=== PATIENT | male | born 1985 | race Caucasian/White ===

== ENCOUNTER 2016-11-17 00:02 | Emergency (ER) | payer BC, MEDICARE ==
--- NOTE | 2016-11-17 00:29 | Emergency Department Record ---
History of Present Illness - General Chief Complaint: Abdominal Pain Stated Complaint: RT SIDE PAIN Time Seen by Provider: 11/17/16 00:15 Source: Patient Mode of Arrival: Ambulatory Limitations: No limitations - History of Present Illness Initial Comments: The patient is here due to a 6 hour hx of R flank pain. The pain is sharp and stabbing. He denies any nausea, vomiting, diarrhea, fever or dysuria. The patient was here in the ER 4 days ago for the same issue and was found to have a very slightly elevated Lipase, normal urine and a CT with a normal pancreas and no hydroureter or stone blockage. There was a very small stone in the kidney. He also has a hx of chronic AP and has had his GB removed in the past. The patient denies any black or bloody stools. He did have an EGD in May that demonstrated Gastritis. MD Complaint: Abdominal pain Onset/Timin -: Hour(s) Location: R Flank, RLQ Severity: Moderate Quality: Sharp Consistency: Constant Improves With: Rest Worsens With: Movement Context: Other Associated Symptoms: Denies other symptoms - Related Data Home Medications Medication Instructions Recorded Confirmed Last Taken Olanzapine 15 mg PO QHS 10/20/14 11/17/16 02/12/16 Omeprazole [Omeprazole] 40 mg PO DAILY 01/02/15 11/17/16 02/13/16 Doxepin HCl [Sinequan] 50 mg PO BID 08/10/15 11/17/16 02/12/16 Topiramate [Topiramate ER] 200 mg PO BID 08/10/15 11/17/16 02/12/16 Previous Rx's Medication Instructions Recorded Sumatriptan Succinate [Imitrex] 100 mg PO ASDIR PRN #4 05/23/15 Dicyclomine HCl [Bentyl] 10 mg PO Q8H #8 cap 11/13/16 Ondansetron [Zofran Odt] 4 mg PO Q8H #12 tab.rapdis 11/13/16 Sucralfate [Carafate] 1 gm PO QID #28 tablet 11/17/16 Allergies Allergy/AdvReac Type Severity Reaction Status Date / Time Sulfa (Sulfonamide Allergy HIVES Verified 08/10/15 17:21 Antibiotics) Travel Screening - Travel/Exposure Within Last 30 Days Have you traveled within the last 30 days?: No - Travel/Exposure Within Last Year Have you traveled outside the [place] 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 - GI Hx GI Disorders: Yes Hx Abdominal Pain: Yes Hx Reflux: Yes Hx Nausea/Vomiting: Yes Hx Ulcer: Yes - Hx Genitourinary Disorders: Yes Hx Kidney Stones: Yes - ENDOCRINE Hx Endocrine Disorders: No Hx Diabetes: No Hx Thyroid Disease: No - MUSCULOSKELETAL Hx Musculoskeletal Disorders: Yes Hx Back Injury: Yes - PSYCH Hx Psych Problems: Yes Hx Depression: Yes (bipolar) - HEMATOLOGY/ONCOLOGY Hx Hematology/Oncology Disorders: No Family Medical History Any Significant Family History?: No Hx Cancer: Grandparents Hx Depression: Mother Hx Diabetes: Mother Physical Exam - General General Appearance: Alert, Cooperative, No acute distress (The patient is very comfortable and in no distress.) - Head Head exam: Atraumatic, Normocephalic, Normal inspection - Eye Eye exam: Normal appearance, PERRL - Neck Neck exam: Normal inspection, Full ROM. negative: Tenderness - Respiratory Respiratory exam: Normal lung sounds bilaterally. negative: Respiratory distress - Cardiovascular Cardiovascular Exam: Regular rate, Normal rhythm, Normal heart sounds - GI/Abdominal GI/Abdominal exam: Soft, Tenderness (There is very mild RUQ tenderness.). negative: Guarding, Pulsatile mass, Rebound, Rigid - Extremities Extremities exam: Normal inspection, Full ROM, Normal capillary refill. negative: Tenderness Course Vital Signs 11/17/16 11/17/16 00:06 00:16 Temperature 98.1 F 98.1 F Pulse Rate [ 113 H Pulse Ox Probe] Respiratory 18 Rate Blood Pressure 126/96 [Left Arm] Pulse Ox 97 - Reevaluation(s) Reevaluation #1: The patient is doing much better at this time. He denies any significant pain or discomfort. He states the GI medicine is helping him. 11/17/16 01:47 Reevaluation #2: The patient is doing much better at this time and is resting comfortably and is texting away on his phone. His pain has resolved and he feels 100% better. He will limit his home pain medicines, start the carafate and F/U with Dr. Carrera for a possible EGD and Colonoscopy. On exam his abdomen is very soft and nontender in all 4 quads. He is up ambulating with no pain or discomfort. 11/17/16 01:59 11/17/16 02:00 11/17/16 02:09 Medical Decision Making - Data Complexity MDM Data: Labs Ordered and/or Reviewed - Lab Data Result diagrams: 11/17/16 00:30 11/17/16 00:30 Disposition Disposition: Discharge Clinical Impression: Abdominal pain Qualifiers: Abdominal location: right lower quadrant Qualified Code(s): R10.31 - Right lower quadrant pain Disposition: Home, Self-Care Condition: (1) Good Instructions: Abdominal Pain (ED) Additional Instructions: Please continue your home medicines and limit your pain medicines if possible. Please take the Carafate for the next week. Please see your PCP if not better in 1-2 days and follow up with Dr. Carrera when possible. Return to the ER for any increased pain, fever, or vomiting. Prescriptions: Sucralfate [Carafate] 1 gm PO QID #28 tablet Referrals: [facility] [Provider Group] NELLY CARRERA [DOCTOR OF OSTEOPATH] - Forms: Patient Portal Access Time of Disposition: 01:55
[2016-11-17] MEDS: KETOROLAC 30 MG/ML VIAL IM ONE (00:33)
[2016-11-17 00:41] LABS: BASO % 0.6 % (0-6); EOS % 1.9 % (0-6); GRAN % 60.8 % (47-80); HEMATOCRIT 32.7 % (42.0-52.0); HEMOGLOBIN 9.7 gm/dl (14.0-18.0); LYMPH % 28.5 % (16-45); MEAN CELL VOLUME 84.1 fl (81-97); MEAN CORPUSCULAR HEMOGLOBIN 24.9 pg (27-33); MEAN CORPUSCULAR HGB CONC 29.7 g/dl (32-36); MEAN PLATELET VOLUME 10.2 fl (7.4-10.4); MONO % 8.2 % (0-9); PLATELET COUNT 157 K/uL (130-400); RED BLOOD COUNT 3.89 M/uL (4.40-5.70); RED CELL DISTRIBUTION WIDTH 16.4 % (11.5-14.5); URINE APPEARANCE CLEAR; URINE BILIRUBIN NEGATIVE (NEGATIVE); URINE BLOOD NEGATIVE (NEGATIVE); URINE COLOR YELLOW; URINE GLUCOSE (UA) NEGATIVE (NEGATIVE); URINE KETONE NEGATIVE (NEGATIVE); URINE LEUKOCYTE ESTERASE NEGATIVE (NEGATIVE); URINE NITRITE NEGATIVE (NEGATIVE); URINE PROTEIN NEGATIVE (NEGATIVE); URINE UROBILINOGEN 0.2 E.U./dL (0.20 - 1.00); WHITE BLOOD COUNT W/O DIFF 5.3 K/uL (4.2-12.2)
[2016-11-17 01:01] LABS: ALB/GLOB RATIO 1.6 (1.1-1.8); ALBUMIN 4.8 gm/dL (3.5-5.0); ALKALINE PHOSPHATASE 77 U/L (38-126); ALT/SGPT 37 U/L (21-72); ANION GAP 15.6 (7-16); AST/SGOT 20 U/L (17-59); BILIRUBIN,TOTAL 0.23 mg/dL (0.2-1.3); BLOOD UREA NITROGEN 15 mg/dL (9-20); CARBON DIOXIDE 18.4 mmol/L (22-30); CREATININE 0.9 mg/dL (0.66-1.25); EST GLOMERULAR FILTRATION RATE > 60 ml/min; GLUCOSE,RANDOM 117 mg/dL (70-110); LIPASE 309 U/L (23-300); TOTAL PROTEIN 7.8 gm/dL (6.3-8.2)
[2016-11-17] MEDS: SUCRALFATE 1 G/10 ML UD PO ONE (01:19)
[2016-11-17] MEDS: MAGNESIUM HYDROXIDE/AL HYDROX 30 ML, LIDOCAINE VISC 2% 200 MG PO ONE ×2 (01:49)
== END 2016-11-17 02:04 | disposition home or self-care (01) ==
LOC: ER 00:02
DX: R10.31 Right lower quadrant pain (principal); Z87.442 Personal history of urinary calculi
CPT/HCPCS: 99283; 96372; 99284; 83690; 85025; 80053; 81003; J1885

== ENCOUNTER 2017-01-13 10:07 | Day surgery (SDC) | payer MEDICARE, BC ==
[2017-01-13] MEDS ORDERED: PROPOFOL 10 MG/ML VIAL IV ONE (14:01)
[2017-01-13] MEDS ORDERED: LIDOCAINE 2% MDV (20MG/ML) 20ML VIAL IV ONE (14:01)
--- NOTE | 2017-01-16 09:52 | Operative Note ---
DATE OF SURGERY: 01/13/2017 SURGEON: Sarahi Saravia MD OPERATION: COLONOSCOPY. INDICATIONS: This is a 31-year-old male with history of chronic diarrhea who presented for colonoscopy. POSTOPERATIVE DIAGNOSES: 1. Normal colonic and terminal ileum mucosa with no ulcerative or neoplastic lesions. 2. Scattered diverticula, left colonic diverticulosis. ANESTHESIA: Per the department of anesthesia, the pulse oximetry was monitored throughout the duration of the procedure to maintain O2 saturation of 90% or greater. Supplemental oxygen was administered via nasal cannula. Cardiac and vital signs were monitored throughout the duration of the procedure, and they were stable. Description of the procedure of colonoscopy and risks and benefits of the procedure including the risk of bleeding and perforation, among others, were explained to the patient who voiced understanding and agreed to have the procedure done. Physical exam was performed, and the patient was found stable for sedation. PROCEDURE: The patient was then placed in the left lateral position, and sedation was initiated. Digital rectal exam was performed and showed some external hemorrhoids with no palpable rectal masses. The Olympus PCF-180AL colonoscope was then inserted into the rectum under direct visualization and advanced to the cecum without difficulty. The ileocecal valve and appendiceal orifice were identified and photographed. The colonic mucosa was carefully examined upon introduction of the colonoscope. There were scattered diverticula noted in the sigmoid and descending colon. There were no other lesions noted. The colonoscope was then withdrawn while carefully examining the colonic mucosal surfaces. No other lesions were noted. The ileocecal valve was intubated and terminal ileum mucosa was inspected for about 10 cm and it appeared normal. The colonoscope was then withdrawn while carefully examining the colonic mucosal surfaces. No other lesions were noted. In the rectum, retroflexion was performed and grade 1 internal hemorrhoids were noted. The colonoscope was then withdrawn, and the procedures were terminated. Random colon biopsies were obtained to rule out microscopic colitis. He remained with stable vital signs and was transferred to the recovery room. RECOMMENDATIONS: 1. The patient should be on a high-fiber diet. 2. He should have a repeat colonoscopy at age 49. Thank you for allowing me to participate in the care of your patient. Sarahi Saravia MD CC: Dr. Fred VARELA
== END 2017-01-13 12:01 | disposition home or self-care (01) ==
LOC: HOP 10:07
PROVIDERS: ATTEND Internal Medicine Gastroenterology
DX: R19.7 Diarrhea, unspecified (principal); K57.30 Diverticulosis of large intestine without perforation or abscess without bleeding; G40.89 Other seizures; F31.9 Bipolar disorder, unspecified; K64.8 Other hemorrhoids

== ENCOUNTER 2017-01-30 02:22 | Emergency (ER) | payer MEDICARE, BC ==
[2017-01-30] MEDS ORDERED: 0.9 % SODIUM CHLORIDE 1,000 ML BAG IV ONE ×2 (03:00→04:34)
[2017-01-30] MEDS ORDERED: PROMETHAZINE HCL 25 MG/ML VIAL IVP ONE (03:01)
--- NOTE | 2017-01-30 03:06 | Emergency Department Record ---
History of Present Illness - General Chief complaint: Vomiting Stated complaint: VOMITING/DRY HEAVES Time Seen by Provider: 01/30/17 02:45 Source: Patient, Family Mode of Arrival: Ambulatory Limitations: No limitations - History of Present Illness Initial comments: pt vomited 3x tonight and had a bout of diarrhea complaint: Nausea, Vomiting Onset/Timin -: Hour(s) Associated Abdominal Pain: Yes Location: LUQ, RUQ Radiation: None Severity: Mild Severity scale (1-10): 8 Quality: Dull, Other Consistency: Constant Improves with: Rest Worsens with: Movement Associated Symptoms: Nausea/vomiting - Related Data Home Medications Medication Instructions Recorded Confirmed Last Taken Olanzapine 15 mg PO QHS 10/20/14 01/30/17 02/12/16 Doxepin HCl [Sinequan] 50 mg PO BID 08/10/15 01/30/17 02/12/16 Topiramate [Topiramate ER] 100 mg PO BID 08/10/15 01/30/17 02/12/16 Cholecalciferol (Vitamin D3) 2,000 unit PO DAILY 01/30/17 01/30/17 Unknown [Vitamin D3] Dicyclomine HCl [Dicyclomine HCl] 20 mg PO QID 01/30/17 01/30/17 Unknown Ferrous Sulfate 325 mg PO DAILY 01/30/17 01/30/17 Unknown Folic Acid 1 mg PO DAILY 01/30/17 01/30/17 Unknown Lactulose 10 gm PO DAILY 01/30/17 01/30/17 Unknown Omeprazole [Prilosec] 40 mg PO DAILY 01/30/17 01/30/17 Unknown Propranolol HCl [Propranolol HCl 60 mg PO DAILY 01/30/17 01/30/17 Unknown ER] Allergies Allergy/AdvReac Type Severity Reaction Status Date / Time Sulfa (Sulfonamide Allergy HIVES Verified 08/10/15 17:21 Antibiotics) Travel Screening - Travel/Exposure Within Last 30 Days Have you traveled within the last 30 days?: No - Travel/Exposure Within Last Year Have you traveled outside the [place] in the last year?: No - Additonal Travel Details Have you been exposed to anyone with a communicable illness?: No - Travel Symptoms Symptom Screening: None Review of Systems Reviewed: No additional complaints except as noted below Constitutional: Reports: As per HPI. Denies: Chills, Fever, Malaise, Night sweats, Weakness, Weight change Eyes: Reports: As per HPI. Denies: Eye discharge, Eye pain, Photophobia, Vision change ENT: Reports: As per HPI. Denies: Congestion, Dental pain, Ear pain, Epistaxis , Hearing loss, Throat pain Respiratory: Reports: As per HPI. Denies: Cough, Dyspnea, Hemoptysis, Stridor, Wheezes Cardiovascular: Reports: As per HPI. Denies: Arrhythmia, Chest pain, Dyspnea on exertion, Edema, Murmurs, Orthopnea, Palpitations, Paroxysmal nocturnal dyspnea, Rheumatic Fever, Syncope Endocrine: Reports: As per HPI. Denies: Fatigue, Heat or cold intolerance, Polydipsia, Polyuria Gastrointestinal: Reports: As per HPI. Denies: Abdominal pain, Constipation, Diarrhea, Hematemesis, Hematochezia, Melena, Nausea, Vomiting Genitourinary: Reports: As per HPI. Denies: Dysuria, Frequency, Hematuria, Incontinence, Retention, Testicular pain, Testicular mass, Urgency Musculoskeletal: Reports: As per HPI. Denies: Arthralgia, Back pain, Gout, Joint swelling, Myalgia, Neck pain Skin: Reports: As per HPI. Denies: Bruising, Change in color, Change in hair/ nails, Lesions, Pruritus, Rash Neurological: Reports: As per HPI. Denies: Abnormal gait, Confusion, Headache, Numbness, Paresthesias, Seizure, Tingling, Tremors, Vertigo, Weakness Psychiatric: Reports: As per HPI. Denies: Anxiety, Auditory hallucinations, Depression, Homicidal thoughts, Suicidal thoughts, Visual hallucinations Hematological/Lymphatic: Reports: As per HPI. 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 - GI Hx GI Disorders: Yes Hx Abdominal Pain: Yes Hx Reflux: Yes Hx Ulcer: Yes - Hx Genitourinary Disorders: Yes Hx Kidney Stones: Yes - ENDOCRINE Hx Endocrine Disorders: No Hx Diabetes: No Hx Thyroid Disease: No - MUSCULOSKELETAL Hx Musculoskeletal Disorders: Yes Hx Back Injury: Yes - PSYCH Hx Psych Problems: Yes Hx Depression: Yes (bipolar) - HEMATOLOGY/ONCOLOGY Hx Hematology/Oncology Disorders: No Family Medical History Any Significant Family History?: No Hx Cancer: Grandparents Hx Depression: Mother Hx Diabetes: Mother Physical Exam - General General Appearance: Alert, Oriented x3, Cooperative, Mild distress - Head Head exam: Normal inspection - Eye Eye exam: Normal appearance, PERRL, EOMI Pupils: Normal accommodation - ENT ENT exam: Normal exam, Mucous membranes moist, Normal external ear exam, Normal orophraynx, TM's normal bilaterally Ear exam: Normal external inspection. negative: External canal tenderness Nasal Exam: Normal inspection. negative: Discharge, Sinus tenderness Mouth exam: Normal external inspection, Tongue normal Teeth exam: Normal inspection. negative: Dental caries Throat exam: Normal inspection. negative: Tonsillar erythema, Tonsillar exudate - Neck Neck exam: Normal inspection, Full ROM. negative: Tenderness - Respiratory Respiratory exam: Normal lung sounds bilaterally. negative: Respiratory distress - Cardiovascular Cardiovascular Exam: Regular rate, Normal rhythm, Normal heart sounds - GI/Abdominal GI/Abdominal exam: Soft, Normal bowel sounds. negative: Tenderness - Rectal Rectal exam: Deferred - exam: Deferred - Extremities Extremities exam: Normal inspection, Full ROM, Normal capillary refill. negative: Tenderness - Back Back exam: Reports: Normal inspection, Full ROM. Denies: Muscle spasm, Rash noted, Tenderness - Neurological Neurological exam: Alert, CN II-XII intact, Normal gait, Oriented X3 - Psychiatric Psychiatric exam: Normal affect, Normal mood - Skin Skin exam: Dry, Intact, Normal color, Warm Course Vital Signs 01/30/17 02:40 Temperature 98.8 F Pulse Rate [ 78 Pulse Ox Probe] Respiratory 18 Rate Blood Pressure 124/73 [Left Arm] Pulse Ox 96 - Reevaluation(s) Reevaluation #1: 01/30/17 05:23 pt feels much better Medical Decision Making - Management Options MDM Management: No Additional Work-up Planned - Data Complexity MDM Data: Labs Ordered and/or Reviewed - Lab Data Result diagrams: 01/30/17 02:30 01/30/17 02:30 Disposition Disposition: Discharge Clinical Impression: Elevated liver enzymes Vomiting Qualifiers: Vomiting type: unspecified Vomiting Intractability: unspecified Nausea presence : with nausea Qualified Code(s): R11.2 - Nausea with vomiting, unspecified Disposition: Home, Self-Care Condition: (1) Good Instructions: Acute Nausea and Vomiting (ED) Additional Instructions: follow up with family doctor on monday without fail. return sooner if worse Forms: Patient Portal Access
[2017-01-30 03:48] LABS: EOS % 2.4 % (0-6); GRAN % 64.5 % (47-80); HEMATOCRIT 40.4 % (42.0-52.0); HEMOGLOBIN 12.4 gm/dl (14.0-18.0); LYMPH % 26.3 % (16-45); MEAN CELL VOLUME 92.7 fl (81-97); MEAN CORPUSCULAR HEMOGLOBIN 28.4 pg (27-33); MEAN CORPUSCULAR HGB CONC 30.7 g/dl (32-36); MEAN PLATELET VOLUME 9.8 fl (7.4-10.4); MONO % 5.8 % (0-9); PLATELET COUNT 255 K/uL (130-400); RED BLOOD COUNT 4.36 M/uL (4.40-5.70); WHITE BLOOD COUNT W/O DIFF 7.2 K/uL (4.2-12.2)
[2017-01-30 04:01] LABS: ALB/GLOB RATIO 1.5 (1.1-1.8); ALBUMIN 4.5 gm/dL (3.5-5.0); ALKALINE PHOSPHATASE 134 U/L (38-126); ALT/SGPT 417 U/L (21-72); ANION GAP 7.8 (7-16); AST/SGOT 189 U/L (17-59); BILIRUBIN,TOTAL 0.42 mg/dL (0.2-1.3); BLOOD UREA NITROGEN 14 mg/dL (9-20); CARBON DIOXIDE 19.2 mmol/L (22-30); CREATININE 1.4 mg/dL (0.66-1.25); EST GLOMERULAR FILTRATION RATE > 60 ml/min; GLUCOSE,RANDOM 68 mg/dL (70-110); LIPASE 183 U/L (23-300); TOTAL PROTEIN 7.5 gm/dL (6.3-8.2)
[2017-01-30 04:04] LABS: RED CELL DISTRIBUTION WIDTH 21.4 % (11.5-14.5)
[2017-01-30] MEDS ORDERED: DEXTROSE 50 % IVP 50 ML DISP.SYRIN IVP ONE (05:15)
[2017-01-30 05:38] LABS: URINE APPEARANCE CLEAR; URINE BILIRUBIN NEGATIVE (NEGATIVE); URINE BLOOD NEGATIVE (NEGATIVE); URINE COLOR YELLOW; URINE GLUCOSE (UA) NEGATIVE (NEGATIVE); URINE KETONE NEGATIVE (NEGATIVE); URINE LEUKOCYTE ESTERASE NEGATIVE (NEGATIVE); URINE NITRITE NEGATIVE (NEGATIVE); URINE PROTEIN NEGATIVE (NEGATIVE); URINE UROBILINOGEN 0.2 E.U./dL (0.20 - 1.00)
--- NOTE | 2017-01-30 05:52 | Emergency Department Record ---
History of Present Illness - General Chief complaint: Vomiting Stated complaint: VOMITING/DRY HEAVES Time Seen by Provider: 01/30/17 02:45 Source: Patient, Family Mode of Arrival: Ambulatory Limitations: No limitations - History of Present Illness MD complaint: Nausea, Vomiting Onset/Timin -: Hour(s) Associated Abdominal Pain: Yes Location: LUQ, RUQ Radiation: None Severity: Mild Severity scale (1-10): 8 Quality: Dull, Other Consistency: Constant Improves with: Rest Worsens with: Movement Associated Symptoms: Nausea/vomiting - Related Data Home Medications Medication Instructions Recorded Confirmed Last Taken Olanzapine 15 mg PO QHS 10/20/14 01/30/17 02/12/16 Doxepin HCl [Sinequan] 50 mg PO BID 08/10/15 01/30/17 02/12/16 Topiramate [Topiramate ER] 100 mg PO BID 08/10/15 01/30/17 02/12/16 Cholecalciferol (Vitamin D3) 2,000 unit PO DAILY 01/30/17 01/30/17 Unknown [Vitamin D3] Dicyclomine HCl [Dicyclomine HCl] 20 mg PO QID 01/30/17 01/30/17 Unknown Ferrous Sulfate 325 mg PO DAILY 01/30/17 01/30/17 Unknown Folic Acid 1 mg PO DAILY 01/30/17 01/30/17 Unknown Lactulose 10 gm PO DAILY 01/30/17 01/30/17 Unknown Omeprazole [Prilosec] 40 mg PO DAILY 01/30/17 01/30/17 Unknown Propranolol HCl [Propranolol HCl 60 mg PO DAILY 01/30/17 01/30/17 Unknown ER] Allergies Allergy/AdvReac Type Severity Reaction Status Date / Time Sulfa (Sulfonamide Allergy HIVES Verified 08/10/15 17:21 Antibiotics) Travel Screening - Travel/Exposure Within Last 30 Days Have you traveled within the last 30 days?: No - Travel/Exposure Within Last Year Have you traveled outside the [place] in the last year?: No - Additonal Travel Details Have you been exposed to anyone with a communicable illness?: No - Travel Symptoms Symptom Screening: None Review of Systems Constitutional: Reports: As per HPI. Denies: Chills, Fever, Malaise, Night sweats, Weakness, Weight change Eyes: Reports: As per HPI. Denies: Eye discharge, Eye pain, Photophobia, Vision change ENT: Reports: As per HPI. Denies: Congestion, Dental pain, Ear pain, Epistaxis , Hearing loss, Throat pain Respiratory: Reports: As per HPI. Denies: Cough, Dyspnea, Hemoptysis, Stridor, Wheezes Cardiovascular: Reports: As per HPI. Denies: Arrhythmia, Chest pain, Dyspnea on exertion, Edema, Murmurs, Orthopnea, Palpitations, Paroxysmal nocturnal dyspnea, Rheumatic Fever, Syncope Endocrine: Reports: As per HPI. Denies: Fatigue, Heat or cold intolerance, Polydipsia, Polyuria Gastrointestinal: Reports: As per HPI. Denies: Abdominal pain, Constipation, Diarrhea, Hematemesis, Hematochezia, Melena, Nausea, Vomiting Genitourinary: Reports: As per HPI. Denies: Dysuria, Frequency, Hematuria, Incontinence, Retention, Testicular pain, Testicular mass, Urgency Musculoskeletal: Reports: As per HPI. Denies: Arthralgia, Back pain, Gout, Joint swelling, Myalgia, Neck pain Skin: Reports: As per HPI. Denies: Bruising, Change in color, Change in hair/ nails, Lesions, Pruritus, Rash Neurological: Reports: As per HPI. Denies: Abnormal gait, Confusion, Headache, Numbness, Paresthesias, Seizure, Tingling, Tremors, Vertigo, Weakness Psychiatric: Reports: As per HPI. Denies: Anxiety, Auditory hallucinations, Depression, Homicidal thoughts, Suicidal thoughts, Visual hallucinations Hematological/Lymphatic: Reports: As per HPI. 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 - GI Hx GI Disorders: Yes Hx Abdominal Pain: Yes Hx Reflux: Yes Hx Ulcer: Yes - Hx Genitourinary Disorders: Yes Hx Kidney Stones: Yes - ENDOCRINE Hx Endocrine Disorders: No Hx Diabetes: No Hx Thyroid Disease: No - MUSCULOSKELETAL Hx Musculoskeletal Disorders: Yes Hx Back Injury: Yes - PSYCH Hx Psych Problems: Yes Hx Depression: Yes (bipolar) - HEMATOLOGY/ONCOLOGY Hx Hematology/Oncology Disorders: No Family Medical History Any Significant Family History?: No Hx Cancer: Grandparents Hx Depression: Mother Hx Diabetes: Mother Physical Exam - General Limitations: No limitations Course Vital Signs 01/30/17 01/30/17 01/30/17 02:40 03:23 04:21 Temperature 98.8 F 98.6 F Pulse Rate [ 78 60 66 Pulse Ox Probe] Respiratory 18 17 18 Rate Blood Pressure 124/73 128/89 118/86 [Left Arm] Pulse Ox 96 99 01/30/17 05:41 Temperature Pulse Rate [ 62 Pulse Ox Probe] Respiratory 16 Rate Blood Pressure 112/88 [Left Arm] Pulse Ox 98 Medical Decision Making - Lab Data Result diagrams: 01/30/17 02:30 01/30/17 02:30 Lab Results 01/30/17 01/30/17 01/30/17 Range/Units 02:30 02:30 05:30 WBC 7.2 (4.2-12.2) K/uL RBC 4.36 L (4.40-5.70) M/uL Hgb 12.4 L (14.0-18.0) gm/dl Hct 40.4 L (42.0-52.0) % MCV 92.7 (81-97) fl MCH 28.4 (27-33) pg MCHC 30.7 L (32-36) g/dl RDW 21.4 H (11.5-14.5) % Plt Count 255 (130-400) K/uL MPV 9.8 (7.4-10.4) fl Gran % 64.5 (47-80) % Lymphocytes % 26.3 (16-45) % Monocytes % 5.8 (0-9) % Eosinophils % 2.4 (0-6) % Basophils % 1.0 (0-6) % Sodium 141 (136-145) mmol/L Potassium 4.1 (3.5-5.1) mmol/L Chloride 114 H (98-107) mmol/L Carbon Dioxide 19.2 L (22-30) mmol/L Anion Gap 7.8 (7-16) BUN 14 (9-20) mg/dL Creatinine 1.4 H (0.66-1.25) mg/dL Estimated GFR > 60 ml/min Random Glucose 68 L (70-110) mg/dL Calcium 8.7 (8.5-10.1) mg/dL Total Bilirubin 0.42 (0.2-1.3) mg/dL AST 189 H (17-59) U/L ALT 417 H (21-72) U/L Alkaline Phosphatase 134 H (38-126) U/L Total Protein 7.5 (6.3-8.2) gm/dL Albumin 4.5 (3.5-5.0) gm/dL Globulin 3.0 (1.4-4.8) gm/dL Albumin/Globulin Ratio 1.5 (1.1-1.8) Lipase 183 (23-300) U/L Urine Color Yellow Urine Appearance Clear Urine pH 5.5 (5.0-8.0) Ur Specific [place] >= 1.030 (1.002-1.030) Urine Protein Negative (NEGATIVE) Urine Glucose (UA) Negative (NEGATIVE) Urine Ketones Negative (NEGATIVE) Urine Blood Negative (NEGATIVE) Urine Nitrite Negative (NEGATIVE) Urine Bilirubin Negative (NEGATIVE) Urine Urobilinogen 0.2 (0.20 - 1.00) E.U./dL Ur Leukocyte Esterase Negative (NEGATIVE) Disposition Clinical Impression: Elevated liver enzymes Vomiting Qualifiers: Vomiting type: unspecified Vomiting Intractability: unspecified Nausea presence : with nausea Qualified Code(s): R11.2 - Nausea with vomiting, unspecified Disposition: Home, Self-Care Condition: (1) Good Instructions: Acute Nausea and Vomiting (ED) Additional Instructions: follow up with family doctor on monday without fail regarding elevated liver enzymes and creatinine. return sooner if worse Forms: Patient Portal Access
[2017-01-30 21:02] LABS: HEP A AB IGM Nonreactive (Nonreactive); HEPATITIS B CORE ANTIBODY,IGM Nonreactive (Nonreactive); HEPATITIS B SURFACE ANTIGEN Nonreactive (Nonreactive); HEPATITIS C VIRUS ANTIBODY Nonreactive (Nonreactive)
== END 2017-01-30 06:00 | disposition home or self-care (01) ==
LOC: ER 02:22
DX: R74.8 Abnormal levels of other serum enzymes (principal); R11.2 Nausea with vomiting, unspecified; R10.12 Left upper quadrant pain; R10.11 Right upper quadrant pain
CPT/HCPCS: 80053; 81003; 83690; 85025; 96374; 99284; J2550; J7030

== ENCOUNTER 2017-10-27 00:53 | Emergency (ER) | payer MEDICARE, BC ==
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
[2017-10-27] MEDS ORDERED: MAGNESIUM HYDROXIDE/AL HYDROX 30 ML, LIDOCAINE VISC 2% 200 MG PO ONE ×2 (01:29)
[2017-10-27 01:39] LABS: BASO % 0.5 % (0-6); EOS % 1.2 % (0-6); GRAN % 43.7 % (47-80); HEMATOCRIT 41.7 % (42.0-52.0); HEMOGLOBIN 14.5 gm/dl (14.0-18.0); LYMPH % 45.1 % (16-45); MEAN CELL VOLUME 109.4 fl (81-97); MEAN CORPUSCULAR HGB CONC 34.8 g/dl (32-36); MEAN PLATELET VOLUME 7.9 fl (7.4-10.4); MONO % 9.5 % (0-9); PLATELET COUNT 237 K/uL (130-400); RED BLOOD COUNT 3.81 M/uL (4.40-5.70); RED CELL DISTRIBUTION WIDTH 14.9 % (11.5-14.5); WHITE BLOOD COUNT W/O DIFF 4.3 K/uL (4.2-12.2)
[2017-10-27] MEDS ORDERED: SUCRALFATE 1 G/10 ML UD PO ONE (01:56)
[2017-10-27 01:57] LABS: BLOOD UREA NITROGEN 14 mg/dL (6-20); CREATINE PHOSPHOKINASE 49 U/L (39-308); CREATININE 0.8 mg/dL (0.7-1.2); EST GLOMERULAR FILTRATION RATE > 60 mL/min; GLUCOSE,RANDOM 128 mg/dL (74-109)
[2017-10-27 01:59] LABS: CKMB 1.1 ng/mL (<6.73)
[2017-10-27] MEDS ORDERED: KETOROLAC 30 MG/ML VIAL IVP ONE (02:00)
[2017-10-27 02:13] LABS: ALBUMIN 4.6 g/dL (4.0-5.0); ALKALINE PHOSPHATASE 102 U/L (40-129); ALT/SGPT 12 U/L (<41); AST/SGOT 11 U/L (10.0-50.0)
[2017-10-27 02:17] LABS: BILIRUBIN,DIRECT < 0.2 mg/dL (0-0.3)
--- NOTE | 2017-10-28 04:18 | RADIOLOGY REPORT ---
DATE: 10/27/2017. EXAM: TWO VIEWS OF THE CHEST. HISTORY: The patient has substernal chest pain. TECHNIQUE: Two views of the chest were provided. COMPARISON: 11/21/2013. FINDINGS: The cardiomediastinal silhouette is within normal limits for size and contour. A moderate to large hiatal hernia is noted. The selena appear unremarkable. There is no radiographic evidence of a focal infiltrate or pleural effusion. No pneumothorax is noted. There is a mildly elevated left hemidiaphragm. This finding is not changed with respect to the prior examination. IMPRESSION: 1. A MODERATE TO LARGE HIATAL HERNIA. 2. OTHERWISE STABLE RADIOGRAPHIC APPEARANCE OF THE CHEST WITH RESPECT TO THE PRIOR EXAMINATION. JOB NUMBER: [id number] [facility]
--- NOTE | 2017-10-28 04:22 | RADIOLOGY REPORT ---
DATE: 10/27/2017. EXAM: THREE VIEWS OF THE LEFT RIBS. HISTORY: The patient has a history of a fall. TECHNIQUE: Three views of the left ribs are provided without comparison examinations. FINDINGS: Contour deformity of the left upper posterolateral ribs is noted compatible with the patient's history of old, healed left-sided rib fractures. There is a contour deformity of the lateral margin of the left scapula which may be related to an exostosis and/or a prior healed fracture. There is no radiographic evidence of a new, acute fracture of the left ribs. If there is further clinical concern then a bone scan can be obtained for further evaluation. IMPRESSION: NO RADIOGRAPHIC EVIDENCE OF AN ACUTE FRACTURE OR DISLOCATION OF THE LEFT RIBS. IF THERE IS FURTHER CLINICAL CONCERN, THEN A BONE SCAN CAN BE OBTAINED FOR FURTHER EVALUATION. JOB NUMBER: [id number] [facility]
== END 2017-10-27 02:41 | disposition home or self-care (01) ==
LOC: ER 00:53
DX: R10.11 Right upper quadrant pain (principal); R07.89 Other chest pain; Z87.820 Personal history of traumatic brain injury; F17.210 Nicotine dependence, cigarettes, uncomplicated
CPT/HCPCS: 99284 ×2; 96374; 82550; 83690; 85025; 80076; 82553; 80048; 84484; 71046; 71100; 93005; 93010; J1885

== ENCOUNTER 2018-07-23 23:47 | Emergency (ER) | payer MEDICARE ==
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
[2018-07-24 00:16] LABS: BLOOD UREA NITROGEN 15 mg/dL (6-20); CREATININE 1.3 mg/dL (0.7-1.2); EST GLOMERULAR FILTRATION RATE > 60 mL/min
[2018-07-24 00:17] LABS: TOTAL PROTEIN 7.2 g/dL (6.6-8.7)
[2018-07-24 00:19] LABS: GLUCOSE,RANDOM 142 mg/dL (74-109)
[2018-07-24 00:22] LABS: ALB/GLOB RATIO 1.8 (1.1-1.8); ALBUMIN 4.6 g/dL (4.0-5.0); ALKALINE PHOSPHATASE 109 U/L (40-129); ALT/SGPT 12 U/L (<41); AST/SGOT 12 U/L (10.0-50.0)
== END 2018-07-24 00:38 | disposition home or self-care (01) ==
LOC: ER 23:47
DX: M79.604 Pain in right leg (principal); F17.210 Nicotine dependence, cigarettes, uncomplicated
CPT/HCPCS: 80053; 85379; 99283